=== PATIENT | female | born 1990 | race Caucasian/White ===

== ENCOUNTER 2022-04-01 12:58 | Emergency (ER) | payer MEDICAID, SELFPAY ==
[2022-04-01 13:08] VITALS: BP 128/86; PULSE 94; RESP 16; TEMP 36.9; O2SAT 95; BMI 35.5
--- NOTE | 2022-04-01 13:32 | ED_ITS ---
HPI - General Adult General Time Seen by Provider: 13:32 Date Seen: 04/01/22 Chief complaint: Skin/Abscess/Foreign Body Stated complaint: Piercing rejection Time Seen by Provider: 04/01/22 13:02 Source: patient Mode of arrival: ambulatory Limitations: no limitations History of Present Illness HPI narrative: Patient has a piercing in her upper chest that is starting to come out been irritated, no other specific complaints. 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 Patient was unable to secure an appointment to get this taken out. Part of the backing is coming through the skin, no fevers or chills. Related Data Home Medications Medication Instructions Recorded Confirmed dextroamphetamine-amphetamine 10 10 mg PO DAILY PRN 04/01/22 04/01/22 mg tablet dextroamphetamine-amphetamine ER 30 mg PO DAILY 04/01/22 04/01/22 30 mg 24hr capsule,extend release (Adderall XR) oxcarbazepine 600 mg tablet 600 mg PO DAILY 04/01/22 04/01/22 venlafaxine 150 mg 150 mg PO DAILY 04/01/22 04/01/22 capsule,extended release 24 hr venlafaxine 75 mg capsule,extended 150 mg PO DAILY 04/01/22 04/01/22 release 24 hr Allergies Allergy/AdvReac Type Severity Reaction Status Date / Time No Known Drug Allergies Allergy Verified 04/01/22 13:13 Review of Systems Narrative: No history of diabetes, skin infections, does have history of end ocarditis, minimal discomfort in the area PFSH PFSH Social History Smoking Status: Former smoker Do you use any of these nicotine containing products: E-Cigarettes Second hand tobacco smoke exposure: Yes How often do you have a drink containing alcohol: never AUDIT-C Alcohol total score: 0 Non-prescribed substance use: marijuana (any form) Non-prescribed substance use details: medical marijuana service: No Exam Narrative: Exam Narrative: Objective: There is a piercing that is on the upper end of her sternum that is coming through the skin part of the backing is sticking through the skin is well there is just irritation around it but no obvious infection Const: Vital Signs, click to edit/add: Vital Signs - 24 hr 04/01/22 13:08 Temperature 98.5 F Pulse Rate [Pulse Oximeter] 94 Respiratory Rate 16 Blood Pressure [Ri ght Upper Arm] 128/86 Pulse Oximetry 95 Oxygen Delivery Me thod Room Air Course Vital Signs Vital signs: Initial Vital Signs Temperature 98.5 F 04/01/22 13:08 Temperature Source Temporal Artery Scan 04/01/22 13:08 Pulse Rate 94 04/01/22 13:08 Pulse Rhythm 04/01/22 13:08 Pulse Strength 3+ Normal 04/01/22 13:08 Respiratory Rate 16 04/01/22 13:08 Blood Pressure 128/86 04/01/22 13:08 Blood Pressure Mean 100 04/01/22 13:08 Blood Pressure Position Sitting 04/01/22 13:08 Pulse Oximetry 95 04/01/22 13:08 Oxygen Delivery Method 04/01/22 13:08 Vital Signs Temperature 98.5 F 04/01/22 13:08 Pulse Rate 94 04/01/22 13:08 Respiratory Rate 16 04/01/22 13:08 Blood Pressure 128/86 04/01/22 13:08 Pulse Oximetry 95 04/01/22 13:08 Oxygen Delivery Method 04/01/22 13:08 Temperature 98.5 F 04/01/22 13:08 Pulse Rate 94 04/01/22 13:08 Respiratory Rate 16 04/01/22 13:08 Blood Pressure 128/86 04/01/22 13:08 Pulse Oximetry 95 04/01/22 13:08 Oxygen Delivery Method 04/01/22 13:08 Medical Decision Making MDM Narrative Medical decision making narrative: Procedure: After sterile scrub 1% xylocaine used with pannus for anesthesia, and I was able to grab with a forceps the entirety of a piercing and bring out the backing and the stud no bleeding noted, this will be covered with a bandage. Watch for redness infection, return to the ED if problems or concerns. Discharge Plan Discharge Clinical Impression: Foreign body Patient Disposition: Home, Self-Care Condition: Improved Additional Instructions: Keep covered times 36 hours, watch for redness infection, return if problems or concerns or any drainage. Activity Level: No Restrictions Discharge Diet: Regular Prescriptions: No Action venlafaxine 75 mg capsule,extended release 24hr 150 mg PO DAILY Label Comments: TAKE 1 CAPSULE BY MOUTH EVERY DAY IN ADDITION TO 150 MG CAPSULE FOR A TOTAL DAILY DOSE OF 225 MG dextroamphetamine-amphetamine 10 mg tablet 10 mg PO DAILY PRN Label Comments: TAKE 1 TABLET BY MOUTH EVERY DAY IN THE AFTERNOON NEEDED FOR INATTENTION venlafaxine 150 mg capsule,extended release 24hr 150 mg PO DAILY Label Comments: TAKE 1 CAPSULE BY MOUTH EVERY DAY IN ADDITION TO 75 MG CAPSULE FOR A TOTAL DOSE OF 225 MG oxcarbazepine 600 mg tablet 600 mg PO DAILY Label Comments: TAKE 1 TABLET BY MOUTH TWICE DAILY dextroamphetamine-amphetamine [Adderall XR] 30 mg capsule,extended release 24hr 30 mg PO DAILY Label Comments: TAKE 1 CAPSULE BY MOUTH EVERY MORNING Follow Up/Referrals: Gregoria Hoff MD [Primary Care Provider] - Stand Alone Forms: [employer] Info Instructions
--- NOTE | 2022-04-01 13:34 | ED.NURSE ---
Piercing removed by Dr. Cheung at bedside. Site cleaned with betadine and removed by Dr. Cheung. Bandaid placed oversite. Bleeding controlled.
== END 2022-04-01 13:52 | disposition home or self-care (01) ==
LOC: ED 13:44
PROVIDERS: Emergency Provider Family Medicine; PCP Family Medicine
DX: S20.351A Superficial foreign body of right front wall of thorax, initial encounter (principal)
CPT/HCPCS: 10120; 99283